=== PATIENT | male | born 1990 | race Caucasian/White ===

== ENCOUNTER 2017-03-16 13:10 | Emergency (ER) | payer SELFPAY ==
[2017-03-16] MEDS ORDERED: PROPARACAINE HCL 0.5% 300 GTTS/BOT SOLN.DROP ONE (13:25)
== END 2017-03-16 13:47 | disposition home or self-care (01) ==
LOC: ED 13:10
DX: B30.9 Viral conjunctivitis, unspecified (principal); F17.210 Nicotine dependence, cigarettes, uncomplicated
CPT/HCPCS: 99283 ×2; A9270